=== PATIENT | male | born 1995 | race Caucasian/White ===

== ENCOUNTER 2020-04-02 18:03 | Emergency (ER) | payer OTHER ==
[~2020-04-02 18:03] MED LIST: AUGMENTIN 875-1 EACH PO; HYDROCODON-ACE1 EAC2 PO; IBUPROFEN600 MG PO; IBUPROFEN800 MG PO; LORTAB 7.5-3251 EACH PO; PROTONIX 40 MG40 M1 PO; ZANTAC 150 MG150 MG PO
[2020-04-02 19:33] LABS: HEMOGLOBIN 14.2 gm/dl (14.0-17.5); RED BLOOD COUNT 4.7 M/UL (4.20-5.50); WHITE BLOOD COUNT 14.8 K/UL (4.5-11.0)
[2020-04-02 19:50] LABS: BUN/CREATININE RATIO 10 (0-10)
[2020-04-02] MEDS ORDERED: NORCO 5-325 TA1 EACH PO (21:25)
[2020-04-02] MEDS ORDERED: IBUPROFEN600 MG PO (21:25)
== END 2020-04-02 22:05 | disposition home or self-care (01) ==
LOC: ER1 18:03
PROVIDERS: Emergency Medicine
DX: S32.029A Unspecified fracture of second lumbar vertebra, initial encounter for closed fracture (principal); S32.039A Unspecified fracture of third lumbar vertebra, initial encounter for closed fracture; S32.049A Unspecified fracture of fourth lumbar vertebra, initial encounter for closed fracture; S02.5XXA Fracture of tooth (traumatic), initial encounter for closed fracture; S06.9X9A Unspecified intracranial injury with loss of consciousness of unspecified duration, initial encounter; S01.01XA Laceration without foreign body of scalp, initial encounter; S20.221A Contusion of right back wall of thorax, initial encounter; M25.512 Pain in left shoulder; M54.2 Cervicalgia; R10.9 Unspecified abdominal pain; F17.200 Nicotine dependence, unspecified, uncomplicated; W37.8XXA Explosion and rupture of other pressurized tire, pipe or hose, initial encounter; Y92.89 Other specified places as the place of occurrence of the external cause; Y99.0 Civilian activity done for income or pay
CPT/HCPCS: 12001; 70450; 70486; 71260; 72125; 72128; 72131; 73030; 80053; 81001; 83690; 85025; 96372; 99284; J1885; Q9967

== ENCOUNTER 2020-04-17 09:39 | Emergency (ER) | payer OTHER ==
[~2020-04-17 09:39] MED LIST changes: +NORCO 5-325 TA1 EACH PO
== END 2020-04-17 10:22 | disposition home or self-care (01) ==
LOC: ER1 09:39
DX: S01.01XD Laceration without foreign body of scalp, subsequent encounter (principal); W37.8XXD Explosion and rupture of other pressurized tire, pipe or hose, subsequent encounter
CPT/HCPCS: 99281

== ENCOUNTER → 2020-04-19 | Outpatient (CLI) | payer OTHER | LOC: EMI 13:45 → KOH-I 13:45 → EMI 14:19 | DX: M54.5 Low back pain (principal); M51.37 Other intervertebral disc degeneration, lumbosacral region | CPT/HCPCS: 72148 ==

== ENCOUNTER 2021-04-20 11:52 | Emergency (ER) | payer SELFPAY | END 2021-04-20 13:27 | disposition home or self-care (01) | LOC: ER1 11:52 | DX: J06.9 Acute upper respiratory infection, unspecified (principal); Z20.822 Contact with and (suspected) exposure to COVID-19; F17.200 Nicotine dependence, unspecified, uncomplicated | CPT/HCPCS: 0240U; 71045; 99283 ==

== ENCOUNTER 2021-08-18 13:01 | Emergency (ER) | payer OTHER ==
[2021-08-18 14:03] LABS: HEMOGLOBIN 14.4 gm/dl (14.0-17.5); RED BLOOD COUNT 4.68 M/UL (4.20-5.50); WHITE BLOOD COUNT 6.6 K/UL (4.5-11.0)
[2021-08-18 14:16] LABS: BUN/CREATININE RATIO 12 (0-10)
[2021-08-18] MEDS ORDERED: PROTONIX40 MG PO (17:41)
== END 2021-08-18 18:01 | disposition home or self-care (01) ==
LOC: ER1 13:01
PROVIDERS: Physician Assistant Medical
DX: R07.9 Chest pain, unspecified (principal); R10.13 Epigastric pain; F17.210 Nicotine dependence, cigarettes, uncomplicated
CPT/HCPCS: 71045; 80053; 82550; 82553; 83690; 84484; 85025; 85379; 93005; 96374; 99285; C9113